=== PATIENT | female | born 1930 | race Caucasian/White ===

== ENCOUNTER 2019-09-30 16:29 | Emergency (ER) | payer OTHER ==
[~2019-09-30] VITALS: Ht 152.4 cm; Wt 68.0 kg
[~2019-09-30 16:29] MED LIST: ASPIRIN325; ATACAND32 MG PO; CIPROFLOXACIN500 M1 PO; HYDROCODON-ACE1 EACH; LEVEMIR SC; LORTAB 5 MG/5001 TAB PO; MULTIVITAMINS PO; OMEPRAZOLE20 MG PO
[2019-09-30 16:58] LABS: HEMATOCRIT 34.2 % (37.0-47.0); HEMOGLOBIN 10.9 gm/dL (12.0-15.0); MCHC 31.9 g/dL (28.0-37.0); MCV 81.4 fL (80.0-100.0); PLATELET COUNT 151 thou/uL (150-400); RBC 4.19 mil/uL (4.20-5.00); RDW 16.3 % (10.5-14.5); WBC 4.2 thou/uL (4.0-11.0)
[2019-09-30 17:05] LABS: CALCIUM 9.3 mg/dL (8.5-10.1); CREATININE 0.9 mg/dL (0.6-1.0); POTASSIUM 4.6 mmol/L (3.5-5.1)
[2019-09-30 17:11] LABS: ALBUMIN 3.4 g/dL (3.4-5.0); TOTAL BILIRUBIN 0.5 mg/dL (<0.1-1.0); TOTAL PROTEIN 7.5 g/dL (6.4-8.2)
[2019-09-30 17:14] LABS: URINE BILIRUBIN NEGATIVE (Negative); URINE BLOOD 2+ (Negative); URINE CLARITY CLOUDY; URINE COLOR YELLOW; URINE GLUCOSE-RANDOM* NEGATIVE (Negative); URINE KETONES NEGATIVE (Negative); URINE PROTEIN (DIPSTICK) TRACE (Negative); URINE UROBILINOGEN 0.2 E.U./dl (0.2-1.0)
[2019-09-30 17:15] LABS: ABSOLUTE NEUTROPHILS 2.6 thou/uL (1.4-8.2)
[2019-09-30 17:16] LABS: URINE LEUKOCYTES-REFLEX 3+ (Negative); URINE NITRITE-REFLEX POSITIVE (Negative)
[2019-09-30 17:16] LABS: PLATELET ESTIMATE NORMAL
[2019-09-30 17:25] LABS: BACTERIA-REFLEX >30 Many /HPF (None Seen); SQUAMOUS 0-3 Few /LPF (0-3); URINE WBC-REFLEX >25 Many /HPF (0-5)
[2019-09-30 17:26] LABS: CASTS None Seen /LPF (None Seen); CRYSTALS None Seen /LPF (None Seen)
[2019-09-30] MEDS ORDERED: FLORANEX TABLE1 EACH PO (17:47)
[2019-09-30] MEDS ORDERED: ASA81BEC PO (17:48)
[2019-09-30] MEDS ORDERED: MINITRAN1 EAC1 TOP (17:48)
[2019-09-30] MEDS ORDERED: TOPROL XL25 MG PO (17:49)
[2019-09-30] MEDS ORDERED: MIRTAZAPINE7.5 MG PO (17:49)
[2019-09-30] MEDS ORDERED: ATORVASTATIN CA80 MG PO (17:50)
[2019-09-30] MEDS ORDERED: MILK OF MA400 MG/5 M PO (17:50)
[2019-09-30] MEDS ORDERED: RANEXA500 MG PO (17:51)
[2019-09-30] MEDS ORDERED: FLOMAX0.4 MG PO (17:51)
[2019-09-30] MEDS ORDERED: VITAMIN B-121000 MC2 SUBLING (17:51)
[2019-09-30] MEDS ORDERED: NOVOFINE PLUS1 EACH MC (17:52)
[2019-09-30] MEDS ORDERED: FIBER350 GM PO (17:53)
[2019-09-30] MEDS ORDERED: SALINE NASAL SP88 ML NASAL (17:53)
[2019-09-30 19:30] VITALS: BP 153/60
--- NOTE | 2019-10-01 13:19 | EKG ---
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1930 Requested By: Marilyn Benton Order Number: [id number] MD: Shahzad Adhikari Measurements Intervals [place] Rate: 64 P: RI: QRS: -17 QRSD: 99 T: -30 QT: 436 QTc: 450 Interpretive Statements Sinus rhythm Abnormal R-wave progression, early transition Inferior infarct, age indeterminate Nonspecific T wave abnormality No previous ECG available for comparison Electronically Signed On 10-01-2019 13:19:07 ASSISTANT FRONT DESK MANAGER by Shahzad Adhikari [email or web address] <ELECTRONICALLY SIGNED> By: Shahzad Adhikari MD, [facility] 10/01/19 1319 1639 [id number] Shahzad Adhikari MD, FACC /EPI
--- NOTE | 2019-10-01 13:20 | EKG ---
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 : 1930 Requested By: Connie Espinoza Order Number: [id number] MD: Shahzad Adhikari Measurements Intervals [place] Rate: 62 P: 18 FL: 186 QRS: -11 QRSD: 99 T: -16 QT: 438 QTc: 445 Interpretive Statements Sinus rhythm Abnormal R-wave progression, early transition Inferior infarct, age indeterminate No previous ECG available for comparison Electronically Signed On 10-01-2019 13:19:55 CRIMINAL LAWYER by Shahzad Adhikari [email or web address] <ELECTRONICALLY SIGNED> By: Shahzad Adhikari MD, [facility] 10/01/19 1319 1908 190 Shahzad Adhikari MD, FACC /EPI
== END 2019-09-30 19:30 | disposition home or self-care (01) ==
LOC: ER 16:29
PROVIDERS: Physician Assistant
DX: S01.111A Laceration without foreign body of right eyelid and periocular area, initial encounter (principal); E11.9 Type 2 diabetes mellitus without complications; K21.9 Gastro-esophageal reflux disease without esophagitis; I25.10 Atherosclerotic heart disease of native coronary artery without angina pectoris; Z88.1 Allergy status to other antibiotic agents; Z88.2 Allergy status to sulfonamides; Z88.8 Allergy status to other drugs, medicaments and biological substances; Z86.73 Personal history of transient ischemic attack (TIA), and cerebral infarction without residual deficits; W07.XXXA Fall from chair, initial encounter; Y92.89 Other specified places as the place of occurrence of the external cause; Y93.89 Activity, other specified; Y99.8 Other external cause status